=== PATIENT | female | born 1945 | race Caucasian/White ===

== ENCOUNTER → 2016-10-01 | Outpatient (CLI) | payer OTHER ==
[~2016-10-01] MED LIST: ASPI-496 PO; ASPI300S PO; FLUO20TA25 PO; FLUO40CA9 PO; HYDR1TAB12 PO; IBUP200C PO; KETO15CR TP; LEVO50TA PO; MOME13HF2; MOME13HF2 INH; OLAN2.5T5 PO; OMNIPAQUE 350 MG/ML, 75ML BOTTLE ONE; ROSU5TAB PO; SPIRIVA PO; TIOT18CA; TYLENOL PO; VICODIN PO
== END | disposition home or self-care (01) ==
LOC: CFH 13:28
PROVIDERS: ATTEND Family Medicine
DX: J43.9 Emphysema, unspecified (principal); R91.1 Solitary pulmonary nodule; J92.9 Pleural plaque without asbestos
CPT/HCPCS: 71020; 71260; Q9967

== ENCOUNTER → 2016-12-07 | Outpatient (CLI) | payer OTHER ==
[~2016-12-07] MED LIST changes: -OMNIPAQUE 350 MG/ML, 75ML BOTTLE ONE
== END | disposition home or self-care (01) ==
LOC: CFH 13:22
PROVIDERS: ATTEND Internal Medicine Critical Care Medicine
DX: J44.9 Chronic obstructive pulmonary disease, unspecified (principal); I37.1 Nonrheumatic pulmonary valve insufficiency
CPT/HCPCS: 93306

== ENCOUNTER 2017-04-12 17:52 | Inpatient (IN) | payer OTHER ==
[~2017-04-12] VITALS: Ht 160 cm; Wt 76.3 kg
[~2017-04-12 17:52] MED LIST changes: +GOLYTELY 4,000ML ORAL.SOL PO ONE; -IBUP200C PO; +IBUP200C5 PO; -KETO15CR TP; +KETO15CR2 TP; +OLAN2.5T10 PO; -OLAN2.5T5 PO
[2017-04-12] MEDS ORDERED: SODIUM CHLORIDE 0.9% 1,000 ML IV ONE (18:13)
[2017-04-12] MEDS ORDERED: FAMOTIDINE 20 MG/2 ML IVP ONE (18:30)
[2017-04-12] MEDS ORDERED: ONDANSETRON 2MG/ML, 2ML IVPush ONE ×2 (18:30→20:00)
[2017-04-12] MEDS ORDERED: FAMOTIDINE 20 MG/2 ML ONE (18:39)
[2017-04-12] MEDS ORDERED: ONDANSETRON 2MG/ML, 2ML ONE ×2 (18:39→19:47)
[2017-04-12 18:47] LABS: HEMATOCRIT 40.8 % (34.6-47.8); HEMOGLOBIN 13.6 g/dL (11.7-16.4)
[2017-04-12 18:59] LABS: ASPARTATE AMINO TRANSFERASE 25 U/L (15-37); BLOOD UREA NITROGEN 16 mg/dL (7-18)
[2017-04-12 19:13] LABS: IS PT STATUS REG ER OR PRE ER? YES
[2017-04-12] MEDS ORDERED: OMNIPAQUE 350 MG/ML, 100ML BOTTLE ONE (19:29)
[2017-04-12] MEDS ORDERED: morphine SULFATE 10 MG/ML, 1ML ONE ×2 (19:47→22:17)
[2017-04-12] MEDS: MORPHINE SULFATE 4 MG/ML, 1ML IVPush PRN ×2 (19:50→22:21)
[2017-04-12] MEDS ORDERED: METHYLNALTREXONE 12 MG/0.6 ML SQ ONE (20:00)
[2017-04-12] MEDS ORDERED: LORazepam 2 MG/ML, 1ML IVPush PRN (23:30)
[2017-04-12] MEDS ORDERED: METOCLOPRAMIDE 5 MG/ML, 2ML IVPush PRN (23:30)
[2017-04-13 00:05] VITALS: BP 159/75
[2017-04-13] MEDS ORDERED: GOLYTELY 4,000ML ORAL.SOL PO ONE (02:00)
[2017-04-13 02:24] LABS: PATH.CAST-FLAG NOT PRESENT; SPERM-FLAG NOT PRESENT; SRC-FLAG NOT PRESENT; XTAL-FLAG NOT PRESENT; YLC-FLAG NOT PRESENT
[2017-04-13 03:45] VITALS: BP 127/68
[2017-04-13] MEDS ORDERED: SODIUM CHLORIDE 0.9% 1,000 ML IV SCH (04:00)
[2017-04-13] MEDS ORDERED: SODIUM CHLORIDE 0.9%, 500ML IVBOLUS ONE (04:00)
[2017-04-13 05:43] LABS: HEMATOCRIT 38.7 % (34.6-47.8); HEMOGLOBIN 13.2 g/dL (11.7-16.4); WHITE BLOOD COUNT 3.2 x10^3/uL (3.4-10)
[2017-04-13 05:55] LABS: BLOOD UREA NITROGEN 15 mg/dL (7-18)
[2017-04-13] MEDS ORDERED: LEVOTHYROXINE 50 MCG TABLET PO SCH (06:00)
[2017-04-13 08:04] VITALS: BP 100/68
[2017-04-13] MEDS: PANTOPRAZOLE 40 MG IV IVPush SCH (08:58)
[2017-04-13] MEDS: ENOXAPARIN 40 MG/0.4 ML SQ SCH (08:59)
[2017-04-13] MEDS: SODIUM CHLORIDE FLUSH 10ML SYR IVF SCH ×2 (08:59→20:48)
[2017-04-13] MEDS ORDERED: MAGNESIUM SULFATE PMX 2GM/50ML 50 ML IV ONE (09:00)
[2017-04-13] MEDS ORDERED: OLANZAPINE 2.5 MG TABLET PO SCH (09:00)
[2017-04-13] MEDS ORDERED: ASPIRIN 81 MG TABLET EC PO SCH (09:00)
[2017-04-13] MEDS: morphine SULFATE 10 MG/ML, 1ML IVPush PRN ×2 (11:53→16:56)
[2017-04-13 13:48] VITALS: BP 101/64
[2017-04-13] MEDS: METOCLOPRAMIDE 5 MG/ML, 2ML IVPush SCH ×2 (14:41→20:48)
[2017-04-13] MEDS: BISACODYL 10 MG SUPP PR SCH (14:41)
[2017-04-13] MEDS ORDERED: PHARMACY MAY ADJ FOR RENAL FX MC PRN ×2 (15:00)
[2017-04-13] MEDS: INSULIN ASPART 100 UNITS/ML, PEN SQ-INSULIN SCH ×2 (16:56→20:49)
[2017-04-13] MEDS ORDERED: POTASSIUM PHOSPHATE 22 MEQ in SODIUM CHLORIDE 0.9% 500 ML IV ONE (17:00)
[2017-04-13 20:34] VITALS: BP 114/71
[2017-04-14 01:28] VITALS: BP 110/73
[2017-04-14] MEDS: morphine SULFATE 10 MG/ML, 1ML IVPush PRN ×4 (02:55→22:39)
[2017-04-14] MEDS: METOCLOPRAMIDE 5 MG/ML, 2ML IVPush SCH ×4 (02:59→21:19)
[2017-04-14] MEDS: SODIUM CHLORIDE 0.9% 1,000 ML IV SCH ×6 (05:16→23:29)
[2017-04-14 06:14] LABS: HEMATOCRIT 41.4 % (34.6-47.8); HEMOGLOBIN 14.1 g/dL (11.7-16.4); WHITE BLOOD COUNT 8.6 x10^3/uL (3.4-10)
[2017-04-14 06:17] LABS: BLOOD UREA NITROGEN 38 mg/dL (7-18)
[2017-04-14 06:25] VITALS: BP 112/73
[2017-04-14 06:35] LABS: DIFF TOTAL CELLS COUNTED 100 CELL DIFF
[2017-04-14 06:40] LABS: VERIFY COUNTS? YES
[2017-04-14 07:00] VITALS: BP 109/60
[2017-04-14] MEDS: INSULIN ASPART 100 UNITS/ML, PEN SQ-INSULIN SCH ×4 (07:00→21:09)
[2017-04-14] MEDS ORDERED: METRONIDAZOLE PMX 500MG/100ML 100 ML IV SCH (07:00)
[2017-04-14] MEDS ORDERED: LEVOFLOXACIN/PMX 500MG/100ML 100 ML IV SCH (07:00)
[2017-04-14] MEDS: LEVOTHYROXINE 100 MCG INJ IVPush SCH (07:59)
[2017-04-14] MEDS: ENOXAPARIN 40 MG/0.4 ML SQ SCH (07:59)
[2017-04-14] MEDS: SODIUM CHLORIDE FLUSH 10ML SYR IVF SCH ×2 (08:00→21:08)
[2017-04-14] MEDS: BISACODYL 10 MG SUPP PR SCH (08:00)
[2017-04-14] MEDS: PANTOPRAZOLE 40 MG IV IVPush SCH (08:52)
[2017-04-14] MEDS ORDERED: HEPARIN 5,000 UNITS/ML, 1ML SQ SCH (09:00)
[2017-04-14] MEDS ORDERED: CEFTRIAXONE PMX 1GM/50ML 50 ML IV SCH (09:00)
[2017-04-14] MEDS ORDERED: PROPOFOL 10 MG/ML, 20ML ONE (11:33)
[2017-04-14] MEDS ORDERED: FENTANYL PF 100 MCG/2ML ONE ×3 (11:35→13:10)
[2017-04-14] MEDS ORDERED: PROPOFOL 100 ML IV ONE (14:01)
[2017-04-14] MEDS ORDERED: MEROPENEM 1 GM in SODIUM CHLORIDE 0.9% 100 ML IV SCH (14:30)
[2017-04-14] MEDS ORDERED: VANCOMYCIN PER PHARMACY MC PRN (14:30)
[2017-04-14] MEDS ORDERED: PROPOFOL 100 ML IV PRN (14:36)
[2017-04-14] MEDS ORDERED: NOREPINEPHRINE 4 MG in SODIUM CHLORIDE 0.9% 246 ML IV PRN (14:36)
[2017-04-14] MEDS ORDERED: LIDOCAINE-MPF 1%, 2ML ENDO PRN (15:00)
[2017-04-14] MEDS ORDERED: PHARMACOKINETIC CONSULTATION MC ONE (15:00)
[2017-04-14] MEDS ORDERED: PHARMACOKINETIC MONITORING MC PRN (15:00)
[2017-04-14 15:47] LABS: ABG COLLECTION SITE RIGHT RADIAL; COLLATERAL CIRCULATION TESTING NORMAL
[2017-04-14] MEDS ORDERED: VANCOMYCIN PMX 1GM/200ML 200 ML IV SCH (16:00)
[2017-04-14] MEDS: MEROPENEM 1 GM in SODIUM CHLORIDE 0.9% 100 ML IV SCH (18:28)
[2017-04-14] MEDS: ACETAMINOPHEN 650 MG SUPP PR PRN (19:28)
[2017-04-14] MEDS ORDERED: NOREPINEPHRINE 8 MG in SODIUM CHLORIDE 0.9% 242 ML IV PRN (22:00)
[2017-04-14 23:21] LABS: ABG COLLECTION SITE RIGHT BRACHIAL
[2017-04-15] MEDS: SODIUM CHLORIDE 0.9% 1,000 ML IV SCH (01:35)
[2017-04-15] MEDS: METOCLOPRAMIDE 5 MG/ML, 2ML IVPush SCH ×4 (01:59→20:03)
[2017-04-15] MEDS: ACETAMINOPHEN 650 MG SUPP PR PRN (02:06)
[2017-04-15] MEDS: INSULIN ASPART 100 UNITS/ML, PEN SQ-INSULIN SCH ×4 (03:00→21:00)
[2017-04-15 03:48] LABS: HEMATOCRIT 36.1 % (34.6-47.8); HEMOGLOBIN 12.1 g/dL (11.7-16.4); WHITE BLOOD COUNT 7.6 x10^3/uL (3.4-10)
[2017-04-15 03:54] LABS: ASPARTATE AMINO TRANSFERASE 46 U/L (15-37); BLOOD UREA NITROGEN 37 mg/dL (7-18)
[2017-04-15 04:00] VITALS: BP 144/62
[2017-04-15 04:09] LABS: DIFF TOTAL CELLS COUNTED 100 CELL DIFF
[2017-04-15 04:13] LABS: ANISOCYTOSIS 1+; POLYCHROMASIA 1+; VERIFY COUNTS? YES
[2017-04-15] MEDS ORDERED: CALCIUM GLUCONATE 9.2 MEQ in SODIUM CHLORIDE 0.9% 100 ML IV ONE (04:30)
[2017-04-15 04:39] LABS: ABG COLLECTION SITE RIGHT RADIAL; COLLATERAL CIRCULATION TESTING NORMAL
[2017-04-15] MEDS: morphine SULFATE 10 MG/ML, 1ML IVPush PRN (05:39)
[2017-04-15] MEDS: MEROPENEM 1 GM in SODIUM CHLORIDE 0.9% 100 ML IV SCH (05:53)
[2017-04-15] MEDS: PANTOPRAZOLE 40 MG IV IVPush SCH (08:10)
[2017-04-15] MEDS: LEVOTHYROXINE 100 MCG INJ IVPush SCH (08:11)
[2017-04-15] MEDS: HEPARIN 5,000 UNITS/ML, 1ML SQ SCH ×2 (08:12→16:31)
[2017-04-15] MEDS: FENTANYL PF 100 MCG/2ML IVPush PRN ×6 (08:13→23:07)
[2017-04-15] MEDS: MIDAZOLAM 1 MG/ML, 2ML IVPush PRN ×5 (08:13→23:07)
[2017-04-15 09:00] VITALS: BP 126/63
[2017-04-15] MEDS: SODIUM CHLORIDE FLUSH 10ML SYR IVF SCH ×2 (11:20→21:01)
[2017-04-15] MEDS: PIPERACILLIN-TAZO-DEXTROSE,ISO 100 ML IV SCH ×2 (11:20→18:56)
[2017-04-15] MEDS ORDERED: CALCIUM CHLORIDE 27.2 MEQ in SODIUM CHLORIDE 0.9% 100 ML IV ONE (12:00)
[2017-04-16] MEDS: HEPARIN 5,000 UNITS/ML, 1ML SQ SCH ×3 (00:59→16:27)
[2017-04-16] MEDS: METOCLOPRAMIDE 5 MG/ML, 2ML IVPush SCH ×4 (02:02→20:31)
[2017-04-16] MEDS: FENTANYL PF 100 MCG/2ML IVPush PRN ×5 (02:45→18:22)
[2017-04-16] MEDS: MIDAZOLAM 1 MG/ML, 2ML IVPush PRN ×2 (02:45→05:20)
[2017-04-16] MEDS: INSULIN ASPART 100 UNITS/ML, PEN SQ-INSULIN SCH ×4 (03:00→20:35)
[2017-04-16] MEDS: PIPERACILLIN-TAZO-DEXTROSE,ISO 100 ML IV SCH ×3 (03:01→17:58)
[2017-04-16 03:23] LABS: HEMATOCRIT 26.2 % (34.6-47.8); HEMOGLOBIN 8.8 g/dL (11.7-16.4); WHITE BLOOD COUNT 4.9 x10^3/uL (3.4-10)
[2017-04-16 04:06] VITALS: BP 145/58
[2017-04-16 04:26] LABS: ABG COLLECTION SITE RIGHT RADIAL; COLLATERAL CIRCULATION TESTING NORMAL
[2017-04-16 09:00] VITALS: BP 168/80
[2017-04-16] MEDS: PANTOPRAZOLE 40 MG IV IVPush SCH (09:04)
[2017-04-16] MEDS: LEVOTHYROXINE 100 MCG INJ IVPush SCH (09:05)
[2017-04-16] MEDS: SODIUM CHLORIDE 0.9% 1,000 ML IV SCH (09:06)
[2017-04-16] MEDS: SODIUM CHLORIDE FLUSH 10ML SYR IVF SCH ×2 (09:06→20:32)
[2017-04-16 09:16] LABS: BLOOD UREA NITROGEN 37 mg/dL (7-18)
[2017-04-16] MEDS ORDERED: CALCIUM CHLORIDE 13.6 MEQ in SODIUM CHLORIDE 0.9% 100 ML IV ONE (10:00)
[2017-04-16] MEDS: hydrALAzine 20 MG/ML, 1ML IVPush PRN (15:04)
[2017-04-16] MEDS ORDERED: ALBUTEROL/IPRATROPIUM 2.5MG/0.5MG, 3 ML NPPB PRN (15:30)
[2017-04-16 17:05] LABS: HEMOGLOBIN 8.8 g/dL (11.7-16.4)
[2017-04-16] MEDS: LABETALOL 5MG/ML, 20ML IVPush PRN (20:41)
[2017-04-17] MEDS: FENTANYL PF 100 MCG/2ML IVPush PRN ×5 (00:20→22:46)
[2017-04-17] MEDS: METOCLOPRAMIDE 5 MG/ML, 2ML IVPush SCH ×4 (01:41→20:06)
[2017-04-17] MEDS: HEPARIN 5,000 UNITS/ML, 1ML SQ SCH ×3 (01:41→17:10)
[2017-04-17] MEDS: INSULIN ASPART 100 UNITS/ML, PEN SQ-INSULIN SCH ×4 (03:00→21:00)
[2017-04-17] MEDS: PIPERACILLIN-TAZO-DEXTROSE,ISO 100 ML IV SCH ×2 (03:01→12:10)
[2017-04-17 04:16] LABS: ABG COLLECTION SITE RIGHT RADIAL; COLLATERAL CIRCULATION TESTING NORMAL
[2017-04-17 04:47] LABS: HEMATOCRIT 27.7 % (34.6-47.8); HEMOGLOBIN 9.4 g/dL (11.7-16.4); WHITE BLOOD COUNT 5.6 x10^3/uL (3.4-10)
[2017-04-17] MEDS: LEVOTHYROXINE 100 MCG INJ IVPush SCH (07:41)
[2017-04-17] MEDS: SODIUM CHLORIDE FLUSH 10ML SYR IVF SCH ×2 (07:42→21:19)
[2017-04-17] MEDS: PANTOPRAZOLE 40 MG IV IVPush SCH (07:42)
[2017-04-17 07:49] LABS: BLOOD UREA NITROGEN 35 mg/dL (7-18)
[2017-04-17 08:18] VITALS: BP 106/67
[2017-04-17] MEDS ORDERED: METHYLNALTREXONE 12 MG/0.6 ML SQ ONE (08:30)
[2017-04-17] MEDS ORDERED: POTASSIUM ACETATE IV ONE (09:00)
[2017-04-17] MEDS ORDERED: DEXTROSE 5% IV ONE (09:00)
[2017-04-17] MEDS: morphine SULFATE 10 MG/ML, 1ML IVPush PRN ×2 (15:07→20:06)
[2017-04-17 15:43] LABS: ABG COLLECTION SITE RIGHT RADIAL; COLLATERAL CIRCULATION TESTING NORMAL
[2017-04-17 15:44] LABS: HEMATOCRIT 25.2 % (34.6-47.8); HEMOGLOBIN 8.7 g/dL (11.7-16.4); WHITE BLOOD COUNT 5.5 x10^3/uL (3.4-10)
[2017-04-17 15:56] LABS: ASPARTATE AMINO TRANSFERASE 38 U/L (15-37); BLOOD UREA NITROGEN 35 mg/dL (7-18)
[2017-04-17 16:01] LABS: IS PT STATUS REG ER OR PRE ER? NO
[2017-04-17] MEDS: PIPERACILLIN/TAZO 4.5 GM in SODIUM CHLORIDE 0.9% 100 ML IVPB SCH (19:23)
[2017-04-17] MEDS: ROSUVASTATIN CALCIUM 5 MG PO SCH (21:00)
[2017-04-18] MEDS: HEPARIN 5,000 UNITS/ML, 1ML SQ SCH ×3 (01:19→17:18)
[2017-04-18] MEDS: morphine SULFATE 10 MG/ML, 1ML IVPush PRN ×2 (01:24→14:01)
[2017-04-18] MEDS: METOCLOPRAMIDE 5 MG/ML, 2ML IVPush SCH ×4 (02:06→19:59)
[2017-04-18] MEDS: PIPERACILLIN/TAZO 4.5 GM in SODIUM CHLORIDE 0.9% 100 ML IVPB SCH ×3 (02:57→19:07)
[2017-04-18] MEDS: INSULIN ASPART 100 UNITS/ML, PEN SQ-INSULIN SCH (03:00)
[2017-04-18 03:15] LABS: HEMATOCRIT 25.2 % (34.6-47.8); HEMOGLOBIN 8.7 g/dL (11.7-16.4); WHITE BLOOD COUNT 6.3 x10^3/uL (3.4-10)
[2017-04-18 03:22] LABS: BLOOD UREA NITROGEN 33 mg/dL (7-18)
[2017-04-18 03:31] LABS: DIFF TOTAL CELLS COUNTED 100 CELL DIFF
[2017-04-18 03:35] LABS: ANISOCYTOSIS 1+; VERIFY COUNTS? YES
[2017-04-18 04:33] LABS: ABG COLLECTION SITE RIGHT RADIAL; COLLATERAL CIRCULATION TESTING NORMAL
[2017-04-18] MEDS: FENTANYL PF 100 MCG/2ML IVPush PRN (04:48)
[2017-04-18] MEDS ORDERED: POTASSIUM CHLORIDE 40 MEQ in SODIUM CHLORIDE 0.9% 100 ML IV ONE ×2 (05:00→10:00)
[2017-04-18] MEDS: FLUOXETINE 20 MG CAPSULE PO SCH (08:40)
[2017-04-18] MEDS: OLANZAPINE 2.5 MG TABLET PO SCH (08:41)
[2017-04-18] MEDS: PANTOPRAZOLE 40 MG IV IVPush SCH (08:51)
[2017-04-18] MEDS: LEVOTHYROXINE 100 MCG INJ IVPush SCH (08:52)
[2017-04-18] MEDS: SODIUM CHLORIDE FLUSH 10ML SYR IVF SCH ×2 (08:53→21:14)
[2017-04-18] MEDS: DEXTROSE 5% 1,000 ML IV SCH ×2 (09:17→22:09)
[2017-04-18 12:18] LABS: IS PT STATUS REG ER OR PRE ER? NO
[2017-04-18] MEDS: ROSUVASTATIN CALCIUM 5 MG PO SCH (21:00)
[2017-04-19] MEDS: METOCLOPRAMIDE 5 MG/ML, 2ML IVPush SCH ×4 (01:25→20:25)
[2017-04-19] MEDS: HEPARIN 5,000 UNITS/ML, 1ML SQ SCH ×3 (01:25→16:38)
[2017-04-19] MEDS: PIPERACILLIN/TAZO 4.5 GM in SODIUM CHLORIDE 0.9% 100 ML IVPB SCH ×3 (02:43→19:16)
[2017-04-19 04:30] LABS: HEMATOCRIT 25.2 % (34.6-47.8); HEMOGLOBIN 8.7 g/dL (11.7-16.4)
[2017-04-19 04:43] LABS: ASPARTATE AMINO TRANSFERASE 61 U/L (15-37); BLOOD UREA NITROGEN 27 mg/dL (7-18)
[2017-04-19 04:55] LABS: IS PT STATUS REG ER OR PRE ER? NO
[2017-04-19 05:43] LABS: DIFF TOTAL CELLS COUNTED 100 CELL DIFF
[2017-04-19 05:46] LABS: ANISOCYTOSIS 1+; VERIFY COUNTS? YES
[2017-04-19 05:47] LABS: POLYCHROMASIA 1+
[2017-04-19] MEDS ORDERED: MAGNESIUM SULFATE PMX 2GM/50ML 50 ML IV ONE (08:30)
[2017-04-19 09:00] VITALS: BP 128/69
[2017-04-19] MEDS: PANTOPRAZOLE 40 MG IV IVPush SCH (09:07)
[2017-04-19] MEDS: SODIUM CHLORIDE FLUSH 10ML SYR IVF SCH ×2 (09:11→20:25)
[2017-04-19] MEDS: FLUOXETINE 20 MG CAPSULE PO SCH (09:11)
[2017-04-19] MEDS: OLANZAPINE 2.5 MG TABLET PO SCH (09:11)
[2017-04-19] MEDS: LEVOTHYROXINE 100 MCG INJ IVPush SCH (09:11)
[2017-04-19] MEDS: POTASSIUM CHLORIDE 20 MEQ PACKET PO SCH ×3 (10:39→20:24)
[2017-04-19 17:15] VITALS: BP 117/67
[2017-04-19 19:53] VITALS: BP 120/77
[2017-04-19] MEDS: ROSUVASTATIN CALCIUM 5 MG PO SCH (20:50)
[2017-04-20] MEDS: HEPARIN 5,000 UNITS/ML, 1ML SQ SCH ×3 (02:03→18:35)
[2017-04-20] MEDS: METOCLOPRAMIDE 5 MG/ML, 2ML IVPush SCH ×4 (02:04→22:45)
[2017-04-20 02:18] VITALS: BP 129/79
[2017-04-20] MEDS: PIPERACILLIN/TAZO 4.5 GM in SODIUM CHLORIDE 0.9% 100 ML IVPB SCH ×3 (02:40→18:35)
[2017-04-20 05:42] LABS: HEMATOCRIT 27.4 % (34.6-47.8); HEMOGLOBIN 9.5 g/dL (11.7-16.4); WHITE BLOOD COUNT 11.5 x10^3/uL (3.4-10)
[2017-04-20 05:54] LABS: ASPARTATE AMINO TRANSFERASE 197 U/L (15-37); BLOOD UREA NITROGEN 23 mg/dL (7-18)
[2017-04-20 05:56] LABS: DIFF TOTAL CELLS COUNTED 100 CELL DIFF
[2017-04-20 05:58] LABS: ANISOCYTOSIS 1+; VERIFY COUNTS? YES
[2017-04-20 05:59] LABS: POLYCHROMASIA 1+
[2017-04-20 07:50] VITALS: BP 103/73
[2017-04-20] MEDS: PANTOPRAZOLE 40 MG IV IVPush SCH (08:29)
[2017-04-20] MEDS: LEVOTHYROXINE 100 MCG INJ IVPush SCH (08:29)
[2017-04-20] MEDS: SODIUM CHLORIDE FLUSH 10ML SYR IVF SCH ×2 (08:29→22:45)
[2017-04-20] MEDS: FLUOXETINE 20 MG CAPSULE PO SCH (08:30)
[2017-04-20] MEDS: OLANZAPINE 2.5 MG TABLET PO SCH (08:30)
[2017-04-20] MEDS: POTASSIUM CHLORIDE 20 MEQ TAB.ER.PRT PO SCH ×2 (12:23→14:54)
[2017-04-20 15:10] VITALS: BP 114/75
[2017-04-20 18:55] VITALS: BP 114/76
[2017-04-20] MEDS: ROSUVASTATIN CALCIUM 5 MG PO SCH (22:45)
[2017-04-21 00:46] VITALS: BP 113/74
[2017-04-21] MEDS: HEPARIN 5,000 UNITS/ML, 1ML SQ SCH ×3 (03:41→18:47)
[2017-04-21] MEDS: METOCLOPRAMIDE 5 MG/ML, 2ML IVPush SCH ×4 (03:42→20:00)
[2017-04-21] MEDS: PIPERACILLIN/TAZO 4.5 GM in SODIUM CHLORIDE 0.9% 100 ML IVPB SCH ×3 (03:42→20:00)
[2017-04-21 06:42] LABS: HEMATOCRIT 23.8 % (34.6-47.8); HEMOGLOBIN 8.1 g/dL (11.7-16.4); WHITE BLOOD COUNT 10.8 x10^3/uL (3.4-10)
[2017-04-21 06:46] VITALS: BP 110/72
[2017-04-21 06:53] LABS: ASPARTATE AMINO TRANSFERASE 330 U/L (15-37); BLOOD UREA NITROGEN 24 mg/dL (7-18)
[2017-04-21 06:54] LABS: DIFF TOTAL CELLS COUNTED 100 CELL DIFF
[2017-04-21 06:56] LABS: VERIFY COUNTS? YES
[2017-04-21 06:57] LABS: ANISOCYTOSIS 1+; POLYCHROMASIA 1+
[2017-04-21] MEDS: PANTOPRAZOLE 40 MG IV IVPush SCH (08:42)
[2017-04-21] MEDS: ALBUMIN HUMAN 25% 50 ML IV SCH (08:42)
[2017-04-21] MEDS: LEVOTHYROXINE 100 MCG INJ IVPush SCH (08:43)
[2017-04-21] MEDS: POLYETHYLENE GLYCOL 17 GM PACKET PO SCH (08:43)
[2017-04-21] MEDS: OLANZAPINE 2.5 MG TABLET PO SCH (08:57)
[2017-04-21] MEDS: FLUOXETINE 20 MG CAPSULE PO SCH (08:57)
[2017-04-21] MEDS: SODIUM CHLORIDE FLUSH 10ML SYR IVF SCH ×2 (08:57→20:13)
[2017-04-21] MEDS ORDERED: CALCIUM GLUCONATE 4.6 MEQ in SODIUM CHLORIDE 0.9% 50 ML IV ONE (09:00)
[2017-04-21] MEDS ORDERED: FUROSEMIDE 20 MG/2 ML ONE (12:45)
[2017-04-21 14:00] VITALS: BP 108/71
[2017-04-21] MEDS ORDERED: POTASSIUM CHLORIDE 40 MEQ in SODIUM CHLORIDE 0.9% 500 ML IV ONE (15:30)
[2017-04-21] MEDS: POTASSIUM CHLORIDE 20 MEQ TAB.ER.PRT PO SCH (18:42)
[2017-04-21 20:54] VITALS: BP 103/60
[2017-04-21] MEDS ORDERED: ATORVASTATIN 10 MG TABLET PO SCH (21:00)
[2017-04-22] VITALS (11 sets, daily range): BP systolic 97–126; BP diastolic 61–78
[2017-04-22] MEDS: POTASSIUM CHLORIDE 20 MEQ TAB.ER.PRT PO SCH ×2 (01:15→04:08)
[2017-04-22] MEDS: HEPARIN 5,000 UNITS/ML, 1ML SQ SCH ×3 (01:16→17:15)
[2017-04-22] MEDS: METOCLOPRAMIDE 5 MG/ML, 2ML IVPush SCH ×4 (01:17→20:53)
[2017-04-22] MEDS: PIPERACILLIN/TAZO 4.5 GM in SODIUM CHLORIDE 0.9% 100 ML IVPB SCH ×3 (04:08→20:52)
[2017-04-22 06:27] LABS: HEMOGLOBIN 7.7 g/dL (11.7-16.4); WHITE BLOOD COUNT 10.6 x10^3/uL (3.4-10)
[2017-04-22 06:28] LABS: HEMATOCRIT 22.2 % (34.6-47.8)
[2017-04-22 06:36] LABS: ASPARTATE AMINO TRANSFERASE 309 U/L (15-37); BLOOD UREA NITROGEN 21 mg/dL (7-18)
[2017-04-22] MEDS ORDERED: CALCIUM GLUCONATE 4.6 MEQ in SODIUM CHLORIDE 0.9% 50 ML IV ONE (07:30)
[2017-04-22] MEDS: SODIUM CHLORIDE FLUSH 10ML SYR IVF SCH ×2 (07:51→20:53)
[2017-04-22] MEDS: LEVOTHYROXINE 100 MCG INJ IVPush SCH (07:51)
[2017-04-22] MEDS: ALBUMIN HUMAN 25% 50 ML IV SCH (07:52)
[2017-04-22] MEDS: PANTOPRAZOLE 40 MG IV IVPush SCH (07:52)
[2017-04-22] MEDS ORDERED: POTASSIUM CHLORIDE 20 MEQ TAB.ER.PRT PO ONE (09:00)
[2017-04-22] MEDS: POLYETHYLENE GLYCOL 17 GM PACKET PO SCH (09:17)
[2017-04-22] MEDS: FLUOXETINE 20 MG CAPSULE PO SCH (09:17)
[2017-04-22] MEDS: OXYcodone IR 5MG TABLET PO PRN ×3 (13:15→23:38)
[2017-04-23 01:09] VITALS: BP 107/75
[2017-04-23] MEDS: METOCLOPRAMIDE 5 MG/ML, 2ML IVPush SCH ×4 (01:12→19:34)
[2017-04-23] MEDS: HEPARIN 5,000 UNITS/ML, 1ML SQ SCH ×3 (01:12→16:59)
[2017-04-23] MEDS: PIPERACILLIN/TAZO 4.5 GM in SODIUM CHLORIDE 0.9% 100 ML IVPB SCH ×3 (04:26→19:34)
[2017-04-23] MEDS: OXYcodone IR 5MG TABLET PO PRN ×4 (05:39→21:28)
[2017-04-23 05:57] LABS: ASPARTATE AMINO TRANSFERASE 200 U/L (15-37); BLOOD UREA NITROGEN 18 mg/dL (7-18)
[2017-04-23 05:59] LABS: HEMATOCRIT 27.6 % (34.6-47.8); HEMOGLOBIN 9.5 g/dL (11.7-16.4); WHITE BLOOD COUNT 11.2 x10^3/uL (3.4-10)
[2017-04-23 08:13] VITALS: BP 106/69
[2017-04-23] MEDS: PANTOPRAZOLE 40 MG IV IVPush SCH (08:18)
[2017-04-23] MEDS: SODIUM CHLORIDE FLUSH 10ML SYR IVF SCH ×2 (08:22→19:34)
[2017-04-23] MEDS: LEVOTHYROXINE 100 MCG INJ IVPush SCH (08:23)
[2017-04-23] MEDS: POLYETHYLENE GLYCOL 17 GM PACKET PO SCH (08:25)
[2017-04-23] MEDS: FLUOXETINE 20 MG CAPSULE PO SCH (08:26)
[2017-04-23] MEDS: ALBUMIN HUMAN 25% 50 ML IV SCH (08:26)
[2017-04-23 13:17] VITALS: BP 108/72
[2017-04-23] MEDS ORDERED: POTASSIUM PHOSPHATE 44 MEQ in SODIUM CHLORIDE 0.9% 500 ML IV ONE (15:30)
[2017-04-23] MEDS ORDERED: MAGNESIUM SULFATE PMX 2GM/50ML 50 ML IV ONE (15:30)
[2017-04-23 20:33] VITALS: BP 103/65
[2017-04-24] MEDS: METOCLOPRAMIDE 5 MG/ML, 2ML IVPush SCH ×4 (01:23→21:42)
[2017-04-24] MEDS: HEPARIN 5,000 UNITS/ML, 1ML SQ SCH ×3 (01:23→16:04)
[2017-04-24] MEDS: OXYcodone IR 5MG TABLET PO PRN ×6 (01:23→21:41)
[2017-04-24 01:24] VITALS: BP 108/67
[2017-04-24] MEDS: PIPERACILLIN/TAZO 4.5 GM in SODIUM CHLORIDE 0.9% 100 ML IVPB SCH ×2 (04:00→12:55)
[2017-04-24 05:15] LABS: HEMATOCRIT 28.1 % (34.6-47.8); HEMOGLOBIN 9.7 g/dL (11.7-16.4); WHITE BLOOD COUNT 10.9 x10^3/uL (3.4-10)
[2017-04-24 05:31] LABS: BLOOD UREA NITROGEN 14 mg/dL (7-18)
[2017-04-24 05:35] LABS: ASPARTATE AMINO TRANSFERASE 158 U/L (15-37)
[2017-04-24] MEDS ORDERED: CALCIUM GLUCONATE 4.6 MEQ in SODIUM CHLORIDE 0.9% 50 ML IV ONE (07:00)
[2017-04-24 07:52] VITALS: BP 107/71
[2017-04-24] MEDS: FLUOXETINE 20 MG CAPSULE PO SCH (08:31)
[2017-04-24] MEDS: PANTOPRAZOLE 40 MG IV IVPush SCH (08:31)
[2017-04-24] MEDS: POLYETHYLENE GLYCOL 17 GM PACKET PO SCH (08:31)
[2017-04-24] MEDS: SODIUM CHLORIDE FLUSH 10ML SYR IVF SCH ×2 (08:32→21:43)
[2017-04-24] MEDS: LEVOTHYROXINE 100 MCG INJ IVPush SCH (09:00)
[2017-04-24] MEDS: ALBUMIN HUMAN 25% 50 ML IV SCH (09:00)
[2017-04-24] MEDS: LEVOTHYROXINE 50 MCG TABLET PO SCH (12:55)
[2017-04-24 13:53] VITALS: BP 114/78
[2017-04-24 20:11] VITALS: BP 104/71
[2017-04-24] MEDS: PIPERACILLIN/TAZO/PMX 4.5GM 100 ML IVPB SCH (21:41)
[2017-04-25 02:00] VITALS: BP 104/67
[2017-04-25] MEDS: OXYcodone IR 5MG TABLET PO PRN ×5 (02:21→21:09)
[2017-04-25] MEDS: HEPARIN 5,000 UNITS/ML, 1ML SQ SCH ×3 (02:26→16:32)
[2017-04-25] MEDS: METOCLOPRAMIDE 5 MG/ML, 2ML IVPush SCH ×4 (02:26→20:12)
[2017-04-25 05:06] LABS: HEMATOCRIT 28.2 % (34.6-47.8); HEMOGLOBIN 9.6 g/dL (11.7-16.4); WHITE BLOOD COUNT 10.5 x10^3/uL (3.4-10)
[2017-04-25 05:19] LABS: ASPARTATE AMINO TRANSFERASE 120 U/L (15-37); BLOOD UREA NITROGEN 11 mg/dL (7-18)
[2017-04-25] MEDS: PIPERACILLIN/TAZO/PMX 4.5GM 100 ML IVPB SCH ×3 (05:57→21:09)
[2017-04-25] MEDS: LEVOTHYROXINE 50 MCG TABLET PO SCH (06:41)
[2017-04-25 07:03] VITALS: BP 137/79
[2017-04-25] MEDS: FLUOXETINE 20 MG CAPSULE PO SCH (08:44)
[2017-04-25] MEDS: PANTOPROZOLE 40MG TABLET PO SCH (08:44)
[2017-04-25] MEDS: POLYETHYLENE GLYCOL 17 GM PACKET PO SCH (08:45)
[2017-04-25] MEDS: SODIUM CHLORIDE FLUSH 10ML SYR IVF SCH ×2 (08:45→20:12)
[2017-04-25] MEDS ORDERED: CALCIUM GLUCONATE 9.2 MEQ in SODIUM CHLORIDE 0.9% 100 ML IV ONE (09:30)
[2017-04-25] MEDS ORDERED: MAGNESIUM SULFATE PMX 2GM/50ML 50 ML IV ONE (09:30)
[2017-04-25] MEDS: ALBUMIN HUMAN 25% 50 ML IV SCH (09:33)
[2017-04-25] MEDS ORDERED: OMNIPAQUE 350 MG/ML, 100ML BOTTLE ONE (11:17)
[2017-04-25 13:28] VITALS: BP 108/67
[2017-04-25 14:45] LABS: PATH.CAST-FLAG NOT PRESENT; SPERM-FLAG NOT PRESENT; SRC-FLAG NOT PRESENT; XTAL-FLAG NOT PRESENT; YLC-FLAG NOT PRESENT
[2017-04-25 20:44] VITALS: BP 107/58
[2017-04-26] MEDS: HEPARIN 5,000 UNITS/ML, 1ML SQ SCH ×4 (01:00→21:51)
[2017-04-26 01:03] VITALS: BP 147/78
[2017-04-26] MEDS: METOCLOPRAMIDE 5 MG/ML, 2ML IVPush SCH ×4 (01:12→20:52)
[2017-04-26 04:25] LABS: HEMOGLOBIN 10.3 g/dL (11.7-16.4); WHITE BLOOD COUNT 12.4 x10^3/uL (3.4-10)
[2017-04-26 04:51] LABS: ASPARTATE AMINO TRANSFERASE 60 U/L (15-37); BLOOD UREA NITROGEN 8 mg/dL (7-18)
[2017-04-26] MEDS: PIPERACILLIN/TAZO/PMX 4.5GM 100 ML IVPB SCH ×3 (05:38→21:50)
[2017-04-26] MEDS: LEVOTHYROXINE 50 MCG TABLET PO SCH (06:00)
[2017-04-26] MEDS: PANTOPROZOLE 40MG TABLET PO SCH (07:30)
[2017-04-26] MEDS: SODIUM CHLORIDE FLUSH 10ML SYR IVF SCH ×2 (07:34→20:52)
[2017-04-26 07:55] VITALS: BP 122/82
[2017-04-26] MEDS: POLYETHYLENE GLYCOL 17 GM PACKET PO SCH (09:00)
[2017-04-26] MEDS: FLUOXETINE 20 MG CAPSULE PO SCH ×2 (09:00→12:10)
[2017-04-26] MEDS ORDERED: LIDOCAINE 2%, 20ML ONE (10:09)
[2017-04-26] MEDS: OXYcodone IR 5MG TABLET PO PRN ×2 (10:42→17:02)
[2017-04-26 11:30] VITALS: BP 149/75
[2017-04-26] MEDS ORDERED: CALCIUM GLUCONATE 9.2 MEQ in SODIUM CHLORIDE 0.9% 100 ML IV ONE (12:00)
[2017-04-26] MEDS: ALBUMIN HUMAN 25% 50 ML IV SCH (12:10)
[2017-04-26 19:02] VITALS: BP 115/70
[2017-04-27] MEDS: hydrALAzine 20 MG/ML, 1ML IVPush PRN (00:19)
[2017-04-27] MEDS: LABETALOL 5MG/ML, 20ML IVPush PRN (00:33)
[2017-04-27 01:32] VITALS: BP 149/76
[2017-04-27] MEDS: METOCLOPRAMIDE 5 MG/ML, 2ML IVPush SCH ×4 (02:58→23:40)
[2017-04-27] MEDS: OXYcodone IR 5MG TABLET PO PRN ×4 (04:19→23:54)
[2017-04-27] MEDS: PANTOPROZOLE 40MG TABLET PO SCH (05:53)
[2017-04-27] MEDS: LEVOTHYROXINE 50 MCG TABLET PO SCH (05:53)
[2017-04-27] MEDS: HEPARIN 5,000 UNITS/ML, 1ML SQ SCH ×3 (05:53→23:41)
[2017-04-27] MEDS: PIPERACILLIN/TAZO/PMX 4.5GM 100 ML IVPB SCH ×3 (05:53→23:41)
[2017-04-27 06:04] LABS: HEMATOCRIT 31.8 % (34.6-47.8); HEMOGLOBIN 10.8 g/dL (11.7-16.4); WHITE BLOOD COUNT 16.4 x10^3/uL (3.4-10)
[2017-04-27 06:15] LABS: ASPARTATE AMINO TRANSFERASE 25 U/L (15-37); BLOOD UREA NITROGEN 9 mg/dL (7-18)
[2017-04-27 06:52] VITALS: BP 128/75
[2017-04-27] MEDS: POLYETHYLENE GLYCOL 17 GM PACKET PO SCH (09:00)
[2017-04-27] MEDS ORDERED: DAPTOMYCIN 480 MG in SODIUM CHLORIDE 0.9% 100 ML IV SCH (09:30)
[2017-04-27] MEDS: ALBUMIN HUMAN 25% 50 ML IV SCH (12:14)
[2017-04-27] MEDS: DAPTOMYCIN 500 MG in SODIUM CHLORIDE 0.9% 100 ML IV SCH (12:14)
[2017-04-27] MEDS: SODIUM CHLORIDE FLUSH 10ML SYR IVF SCH ×2 (12:14→23:41)
[2017-04-27 13:20] VITALS: BP 107/76
[2017-04-27 18:41] VITALS: BP 98/63
[2017-04-28 01:03] VITALS: BP 91/62
[2017-04-28] MEDS: PIPERACILLIN/TAZO/PMX 4.5GM 100 ML IVPB SCH ×3 (06:10→22:39)
[2017-04-28] MEDS: METOCLOPRAMIDE 5 MG/ML, 2ML IVPush SCH ×3 (06:10→18:22)
[2017-04-28] MEDS: HEPARIN 5,000 UNITS/ML, 1ML SQ SCH ×3 (06:11→22:39)
[2017-04-28] MEDS: LEVOTHYROXINE 50 MCG TABLET PO SCH (06:11)
[2017-04-28 06:32] LABS: HEMATOCRIT 28.3 % (34.6-47.8); HEMOGLOBIN 9.5 g/dL (11.7-16.4); WHITE BLOOD COUNT 14.1 x10^3/uL (3.4-10)
[2017-04-28 06:47] LABS: ASPARTATE AMINO TRANSFERASE 17 U/L (15-37); BLOOD UREA NITROGEN 11 mg/dL (7-18)
[2017-04-28 07:33] VITALS: BP 139/75
[2017-04-28] MEDS: FLUOXETINE 20 MG CAPSULE PO SCH (08:28)
[2017-04-28] MEDS: PANTOPROZOLE 40MG TABLET PO SCH (08:28)
[2017-04-28] MEDS: POLYETHYLENE GLYCOL 17 GM PACKET PO SCH (08:29)
[2017-04-28] MEDS: SODIUM CHLORIDE FLUSH 10ML SYR IVF SCH ×2 (08:33→21:00)
[2017-04-28] MEDS: ALBUMIN HUMAN 25% 50 ML IV SCH (09:25)
[2017-04-28] MEDS: DAPTOMYCIN 500 MG in SODIUM CHLORIDE 0.9% 100 ML IV SCH (11:56)
[2017-04-28 14:43] VITALS: BP 130/75
[2017-04-28] MEDS: POTASSIUM CHLORIDE 20 MEQ TAB.ER.PRT PO SCH ×2 (16:32→18:22)
[2017-04-28 19:59] VITALS: BP 133/63
[2017-04-29] MEDS: METOCLOPRAMIDE 5 MG/ML, 2ML IVPush SCH ×4 (00:30→18:22)
[2017-04-29 01:48] VITALS: BP 132/53
[2017-04-29] MEDS: PIPERACILLIN/TAZO/PMX 4.5GM 100 ML IVPB SCH ×2 (05:49→15:05)
[2017-04-29] MEDS: LEVOTHYROXINE 50 MCG TABLET PO SCH (05:49)
[2017-04-29] MEDS: HEPARIN 5,000 UNITS/ML, 1ML SQ SCH ×3 (05:49→21:34)
[2017-04-29 05:53] LABS: HEMATOCRIT 25.6 % (34.6-47.8); HEMOGLOBIN 8.6 g/dL (11.7-16.4); WHITE BLOOD COUNT 9.1 x10^3/uL (3.4-10)
[2017-04-29 05:59] LABS: ASPARTATE AMINO TRANSFERASE 28 U/L (15-37); BLOOD UREA NITROGEN 12 mg/dL (7-18)
[2017-04-29] MEDS: OXYcodone IR 5MG TABLET PO PRN ×3 (06:37→21:34)
[2017-04-29 07:01] VITALS: BP 128/71
[2017-04-29] MEDS: ALBUMIN HUMAN 25% 50 ML IV SCH (09:29)
[2017-04-29] MEDS: FLUOXETINE 20 MG CAPSULE PO SCH (09:30)
[2017-04-29] MEDS: POLYETHYLENE GLYCOL 17 GM PACKET PO SCH (09:30)
[2017-04-29] MEDS: SODIUM CHLORIDE FLUSH 10ML SYR IVF SCH ×2 (09:30→21:33)
[2017-04-29] MEDS: PANTOPROZOLE 40MG TABLET PO SCH (09:30)
[2017-04-29] MEDS: DAPTOMYCIN 500 MG in SODIUM CHLORIDE 0.9% 100 ML IV SCH (13:12)
[2017-04-29 13:38] VITALS: BP 140/76
[2017-04-29] MEDS ORDERED: POTASSIUM PHOSPHATE 44 MEQ in SODIUM CHLORIDE 0.9% 500 ML IV ONE (17:30)
[2017-04-29 20:30] VITALS: BP 126/58
[2017-04-29] MEDS: PIPERACILLIN/TAZO 4.5 GM in DEXTROSE 5% 100 ML IVPB SCH (21:34)
[2017-04-30] MEDS: METOCLOPRAMIDE 5 MG/ML, 2ML IVPush SCH ×2 (00:28→05:37)
[2017-04-30] MEDS: OXYcodone IR 5MG TABLET PO PRN ×2 (03:02→14:15)
[2017-04-30 03:30] VITALS: BP 141/74
[2017-04-30] MEDS: PIPERACILLIN/TAZO 4.5 GM in DEXTROSE 5% 100 ML IVPB SCH ×3 (05:37→23:05)
[2017-04-30] MEDS: LEVOTHYROXINE 50 MCG TABLET PO SCH (05:38)
[2017-04-30] MEDS: HEPARIN 5,000 UNITS/ML, 1ML SQ SCH ×2 (05:38→14:15)
[2017-04-30 06:08] LABS: HEMATOCRIT 26.4 % (34.6-47.8); HEMOGLOBIN 8.7 g/dL (11.7-16.4); WHITE BLOOD COUNT 9.8 x10^3/uL (3.4-10)
[2017-04-30 06:47] LABS: ASPARTATE AMINO TRANSFERASE 21 U/L (15-37); BLOOD UREA NITROGEN 12 mg/dL (7-18)
[2017-04-30 07:34] VITALS: BP 96/69
[2017-04-30] MEDS: SODIUM CHLORIDE FLUSH 10ML SYR IVF SCH ×2 (09:29→23:05)
[2017-04-30] MEDS: FLUOXETINE 20 MG CAPSULE PO SCH (09:29)
[2017-04-30] MEDS: PANTOPROZOLE 40MG TABLET PO SCH (09:29)
[2017-04-30] MEDS: POLYETHYLENE GLYCOL 17 GM PACKET PO SCH (09:29)
[2017-04-30] MEDS: ALBUMIN HUMAN 25% 50 ML IV SCH (09:29)
[2017-04-30] MEDS: DAPTOMYCIN 500 MG in SODIUM CHLORIDE 0.9% 100 ML IV SCH (13:22)
[2017-04-30 13:37] VITALS: BP 154/57
[2017-04-30] MEDS ORDERED: FUROSEMIDE 20 MG/2 ML ONE (16:09)
[2017-04-30] MEDS ORDERED: POTASSIUM CHLORIDE 20 MEQ TAB.ER.PRT PO ONE (17:00)
[2017-04-30] MEDS ORDERED: FUROSEMIDE 100 MG/10 ML IV ONE (17:00)
[2017-04-30] MEDS: ENOXAPARIN 80 MG/0.8 ML SQ SCH (17:41)
[2017-04-30 19:19] VITALS: BP 103/72
[2017-05-01] MEDS: OXYcodone IR 5MG TABLET PO PRN ×3 (00:02→17:35)
[2017-05-01 02:08] VITALS: BP 111/73
[2017-05-01 04:41] LABS: HEMATOCRIT 24.8 % (34.6-47.8); HEMOGLOBIN 8.3 g/dL (11.7-16.4); WHITE BLOOD COUNT 9.2 x10^3/uL (3.4-10)
[2017-05-01 04:51] LABS: BLOOD UREA NITROGEN 11 mg/dL (7-18)
[2017-05-01] MEDS: LEVOTHYROXINE 50 MCG TABLET PO SCH (05:43)
[2017-05-01] MEDS: PIPERACILLIN/TAZO 4.5 GM in DEXTROSE 5% 100 ML IVPB SCH ×3 (05:44→22:09)
[2017-05-01] MEDS: ENOXAPARIN 80 MG/0.8 ML SQ SCH ×2 (05:44→17:34)
[2017-05-01 07:00] VITALS: BP 149/77
[2017-05-01] MEDS: POLYETHYLENE GLYCOL 17 GM PACKET PO SCH (09:22)
[2017-05-01] MEDS: FLUOXETINE 20 MG CAPSULE PO SCH (09:22)
[2017-05-01] MEDS: ALBUMIN HUMAN 25% 50 ML IV SCH (09:22)
[2017-05-01] MEDS: SODIUM CHLORIDE FLUSH 10ML SYR IVF SCH ×2 (09:23→20:00)
[2017-05-01] MEDS: PANTOPROZOLE 40MG TABLET PO SCH (09:23)
[2017-05-01] MEDS ORDERED: MAGNESIUM SULFATE PMX 2GM/50ML 50 ML IV ONE (11:00)
[2017-05-01] MEDS ORDERED: FUROSEMIDE 40 MG/4 ML IV ONE (11:30)
[2017-05-01] MEDS ORDERED: POTASSIUM CHLORIDE 20 MEQ TAB.ER.PRT PO ONE (11:30)
[2017-05-01 12:18] LABS: ASPARTATE AMINO TRANSFERASE 18 U/L (15-37); BLOOD UREA NITROGEN 10 mg/dL (7-18)
[2017-05-01] MEDS: DAPTOMYCIN 500 MG in SODIUM CHLORIDE 0.9% 100 ML IV SCH (13:52)
[2017-05-01 14:18] VITALS: BP 138/77
[2017-05-01 19:45] VITALS: BP 104/70
[2017-05-02 03:52] VITALS: BP 110/76
[2017-05-02] MEDS: LEVOTHYROXINE 50 MCG TABLET PO SCH (05:49)
[2017-05-02] MEDS: ENOXAPARIN 80 MG/0.8 ML SQ SCH (05:49)
[2017-05-02] MEDS: PIPERACILLIN/TAZO 4.5 GM in DEXTROSE 5% 100 ML IVPB SCH ×3 (05:49→23:48)
[2017-05-02] MEDS: OXYcodone IR 5MG TABLET PO PRN ×2 (05:55→15:52)
[2017-05-02 06:14] LABS: HEMATOCRIT 24.2 % (34.6-47.8); WHITE BLOOD COUNT 7.4 x10^3/uL (3.4-10)
[2017-05-02 07:02] VITALS: BP 102/67
[2017-05-02] MEDS: PANTOPROZOLE 40MG TABLET PO SCH (08:48)
[2017-05-02] MEDS: FLUOXETINE 20 MG CAPSULE PO SCH (08:48)
[2017-05-02] MEDS: POLYETHYLENE GLYCOL 17 GM PACKET PO SCH (08:49)
[2017-05-02] MEDS: ALBUMIN HUMAN 25% 50 ML IV SCH (08:49)
[2017-05-02] MEDS: SODIUM CHLORIDE FLUSH 10ML SYR IVF SCH ×2 (09:02→21:00)
[2017-05-02 13:03] VITALS: BP 105/71
[2017-05-02] MEDS: DAPTOMYCIN 500 MG in SODIUM CHLORIDE 0.9% 100 ML IV SCH (14:21)
[2017-05-02] MEDS: POTASSIUM CHLORIDE 20 MEQ TAB.ER.PRT PO SCH ×2 (17:42→21:00)
[2017-05-02 19:00] VITALS: BP 104/70
[2017-05-03 03:17] VITALS: BP 152/78
[2017-05-03] MEDS: LEVOTHYROXINE 50 MCG TABLET PO SCH (05:52)
[2017-05-03] MEDS: OXYcodone IR 5MG TABLET PO PRN (05:52)
[2017-05-03] MEDS ORDERED: ENOXAPARIN 80 MG/0.8 ML SQ SCH ×2 (06:00→18:00)
[2017-05-03 06:04] LABS: HEMATOCRIT 23.4 % (34.6-47.8); HEMOGLOBIN 7.8 g/dL (11.7-16.4); WHITE BLOOD COUNT 6.1 x10^3/uL (3.4-10)
[2017-05-03 06:16] LABS: BLOOD UREA NITROGEN 10 mg/dL (7-18)
[2017-05-03 07:24] VITALS: BP 157/63
[2017-05-03] MEDS: PIPERACILLIN/TAZO 4.5 GM in DEXTROSE 5% 100 ML IVPB SCH (07:30)
[2017-05-03] MEDS: PANTOPROZOLE 40MG TABLET PO SCH (07:30)
[2017-05-03] MEDS: POLYETHYLENE GLYCOL 17 GM PACKET PO SCH (08:54)
[2017-05-03] MEDS: FLUOXETINE 20 MG CAPSULE PO SCH (09:01)
[2017-05-03] MEDS: ALBUMIN HUMAN 25% 50 ML IV SCH (09:01)
[2017-05-03] MEDS: SODIUM CHLORIDE FLUSH 10ML SYR IVF SCH (09:02)
[2017-05-03] MEDS ORDERED: FUROSEMIDE 40 MG/4 ML IV ONE (10:00)
[2017-05-03] MEDS ORDERED: CALCIUM GLUCONATE IV ONE (10:00)
[2017-05-03] MEDS ORDERED: DEXTROSE 5% IV ONE (10:00)
[2017-05-03] MEDS: POTASSIUM CHLORIDE 20 MEQ TAB.ER.PRT PO SCH ×2 (10:46→13:05)
[2017-05-03] MEDS ORDERED: DAPT500V6 IV (11:59)
[2017-05-03] MEDS ORDERED: OXYC5TAB3 PO (11:59)
[2017-05-03] MEDS ORDERED: IPRA3AMP NPPB (11:59)
[2017-05-03] MEDS ORDERED: PIPE3.375 IV (11:59)
[2017-05-03] MEDS ORDERED: ENOX80SY4 SQ (11:59)
[2017-05-03] MEDS ORDERED: ALBUMIN IV (11:59)
[2017-05-03] MEDS ORDERED: PANT40TA5 PO (11:59)
[2017-05-03] MEDS ORDERED: POLY17PO5 PO (11:59)
[2017-05-03] MEDS ORDERED: ONDA4TAB13 SL (11:59)
[2017-05-03 12:55] VITALS: BP 150/78
[2017-05-03] MEDS ORDERED: PNEUMOCOCCAL 23 VACCINE IM-VACC ONE (14:00)
[2017-05-03] MEDS: DAPTOMYCIN 500 MG in SODIUM CHLORIDE 0.9% 100 ML IV SCH (14:21)
== END 2017-05-03 15:17 | DRG 853 ==
LOC: ED 18:59 → EDIP 23:23 → 3NE 23:23 → INTOOBSV 23:23 → 4EST 04-14 06:16 → OBSVTOIN 04-14 08:10 → CCU 04-14 13:31 → 4NOR 04-19 17:11
PROVIDERS: ADMIT Family Medicine; ATTEND Family Medicine
PROC: 0BH17EZ Insertion of Endotracheal Airway into Trachea, Via Natural or Artificial Opening (ICD-10-PCS; 2017-04-14)
PROC: 0D1M0Z4 Bypass Descending Colon to Cutaneous, Open Approach (ICD-10-PCS; 2017-04-14)
PROC: 0DTN0ZZ Resection of Sigmoid Colon, Open Approach (ICD-10-PCS; 2017-04-14)
PROC: 5A1945Z Respiratory Ventilation, 24-96 Consecutive Hours (ICD-10-PCS; 2017-04-14)
PROC: 30233N1 Transfusion of Nonautologous Red Blood Cells into Peripheral Vein, Percutaneous Approach (ICD-10-PCS; principal; 2017-04-22)
PROC: 0W9J3ZX Drainage of Pelvic Cavity, Percutaneous Approach, Diagnostic (ICD-10-PCS; 2017-04-26)
DX: A41.4 Sepsis due to anaerobes (principal); K63.1 Perforation of intestine (nontraumatic); J96.21 Acute and chronic respiratory failure with hypoxia; I26.99 Other pulmonary embolism without acute cor pulmonale; K65.0 Generalized (acute) peritonitis; E43 Unspecified severe protein-calorie malnutrition; N17.0 Acute kidney failure with tubular necrosis; K65.1 Peritoneal abscess; J18.9 Pneumonia, unspecified organism; J90 Pleural effusion, not elsewhere classified; K56.600 Partial intestinal obstruction, unspecified as to cause; K56.7 Ileus, unspecified; E87.0 Hyperosmolality and hypernatremia; E87.1 Hypo-osmolality and hyponatremia; J44.0 Chronic obstructive pulmonary disease with (acute) lower respiratory infection; Z99.11 Dependence on respirator [ventilator] status; K63.3 Ulcer of intestine; E83.39 Other disorders of phosphorus metabolism; K59.00 Constipation, unspecified; E86.0 Dehydration; E78.5 Hyperlipidemia, unspecified; F32.9 Major depressive disorder, single episode, unspecified; D64.9 Anemia, unspecified; E83.42 Hypomagnesemia; E83.51 Hypocalcemia; E87.6 Hypokalemia; F17.200 Nicotine dependence, unspecified, uncomplicated; N73.9 Female pelvic inflammatory disease, unspecified; E89.0 Postprocedural hypothyroidism; R73.9 Hyperglycemia, unspecified; R74.0 Nonspecific elevation of levels of transaminase and lactic acid dehydrogenase [LDH]; Z23 Encounter for immunization; Z90.49 Acquired absence of other specified parts of digestive tract; Z90.710 Acquired absence of both cervix and uterus; Z99.81 Dependence on supplemental oxygen; Z88.2 Allergy status to sulfonamides; Z68.29 Body mass index [BMI] 29.0-29.9, adult; Z66 Do not resuscitate
CPT/HCPCS: 10160; 36415; 36600; 49405; 70450; 71010; 74000; 74020; 74176; 74177; 76770; 78582; 80048; 80053; 81001; 82330; 82803; 82962; 83036; 83605; 83690; 83735; 84100; 84443; 84478; 84484; 85014; 85018; 85025; 85651; 86140; 86704; 86706; 86708; 86803; 86850; 86900; 86923; 87040; 87070; 87075; 87077; 87081; 87086; 87186; 87205; 87340; 88307; 90732; 93005; 93306; 93970; 94002; 94003; 94640; G0378; J0610; J0696; J0878; J1644; J1650; J1815; J1940; J2185; J2250; J2405; J2543; J2704; J3010; J3370; J3480; J3490; J7070; J7620; P9047; Q9967; 92523-GN; A9540; A9558; C1765; C9113; C9898; J0360; J2060; J2270; J2765; J3475; J7030; J7040; J7050; P9016; S0028